=== PATIENT | female | born 1990 | race Caucasian/White ===

== ENCOUNTER → 2019-06-17 | Outpatient (CLI) | payer BC ==
--- NOTE | 2019-06-17 14:18 | 2DMMODE ---
[facility] [employer] [place] [address] 2 D/M-MODE ECHOCARDIOGRAM Name: CHACHA LAY Room #: REG CL [facility]#: [id number] Admission: 06/17/19 Attend Phys: David Tapia MD Discharge: Date of : 89 Report #: [id number] THIS REPORT FOR: //name// APPROVED REPORT Study performed: 06/17/2019 09:22:28 EXAM: Comprehensive 2D, Doppler, and color-flow Echocardiogram Patient Location: Out-Patient Status: routine BSA: 1.92 HR: 65 bpm BP: 100/70 mmHg Rhythm: NSR/arrythmia Indications Evaluate for PHTN, scleroderma, CREST sydrome. 2D Dimensions RVDd: 35.59 mm IVSd: 7.57 (7-11mm) LVOT Diam: 19.72 (18-24mm) LVDd: 43.56 mm PWd: 7.74 (7-11mm) Ascending Ao: 27.15 (22-36mm) LVDs: 31.86 (25-40mm) Aortic Root: 28.06 mm Volumes Left Atrial Volume (Systole) Single Plane 4CH: 48.50 mL Single Plane 2CH: 47.46 mL LA ESV Index: 28.00 mL/m2 Aortic Valve AoV Peak Héctor.: 1.35 m/s AO Peak Gr.: 7.30 mmHg LVOT Max P.22 mmHg LVOT Max V: 0.90 m/s ANABELLE Vmax: 2.03 cm2 Mitral Valve E/A Ratio: 2.1 MV Decel. Time: 230.97 ms MV E Max Héctor.: 0.81 m/s MV A Héctor.: 0.38 m/s MV PHT: 66.98 ms IVRT: 96.89 ms [facility] [employer] [place] [address] 2 D/M-MODE ECHOCARDIOGRAM Name: CHACHA LAY Room #: REG [facility]#: [id number] Admission: 06/17/19 Attend Phys: David Tapia MD Discharge: Date of : 89 Report #: [id number] Pulmonary Valve PV Peak Héctor.: 1.05 m/s PV Peak Gr.: 4.37 mmHg Pulmonary Vein P Vein S: 0.52 m/s P Vein A: 0.22 m/s P Vein D: 0.64 m/s P Vein A Dur.: 115.3 msec P Vein S/D Ratio: 0.81 Tricuspid Valve TR Peak Hécotr.: 2.10 m/s RAP Estimate: 5.00 mmHg TR Peak Gr.: 17.00 mmHg PA Pressure: 22.00 mmHg Left Ventricle The left ventricle is normal size. There is normal LV segmental wall motion. There is normal left ventricular wall thickness. Left ventricular systolic function is normal. LVEF is 55-60%. The left ventricular diastolic function is normal. Right Ventricle The right ventricle is normal size. The right ventricular systolic function is normal. Atria The left atrium size is normal. The right atrium size is normal. Aortic Valve The aortic valve is normal in structure. No aortic regurgitation is present. There is no aortic valvular stenosis. Mitral Valve The mitral valve is normal in structure. Trace mitral regurgitation. No evidence of mitral valve stenosis. Tricuspid Valve The tricuspid valve is normal in structure. Mild tricuspid regurgitation. Estimated PAP is 20-25mmHg. Pulmonic Valve The pulmonary valve is normal in structure. Trace pulmonic regurgitation. Great Vessels The aortic root is normal in size. The ascending aorta is normal in [facility] [address] [place] [address] 2 D/M-MODE ECHOCARDIOGRAM Name: CHACHA LAY Room #: REG [facility]#: [id number] Admission: 06/17/19 Attend Phys: David Tapia MD Discharge: Date of : 89 Report #: [id number] size. IVC is normal in size and collapses >50% with inspiration. Pericardium There is no pericardial effusion. <Conclusion> The left ventricle is normal size. LVEF is 55-60%. The aortic valve is normal in structure. The mitral valve is normal in structure. Trace mitral regurgitation. The tricuspid valve is normal in structure. Mild tricuspid regurgitation. Estimated PAP is 20-25mmHg. The pulmonary valve is normal in structure. Trace pulmonic regurgitation. There is no pericardial effusion. <ELECTRONICALLY SIGNED> By: Indio Douglas MD 06/17/19 1418 17 17 Indio Douglas MD /INF
--- NOTE | 2019-07-11 17:48 | PFR/MVV ---
[facility] [place] [address] PULMONARY FUNCTION MVV/REPORT Name: [facility]ACHA LAY [id number] Admission: 06/17/19 Attend Phys: Gaye Tapia MD Discharge: Date of : 89 Report #: [id number] THIS REPORT FOR: //name// >> SPIROMETRY: (BTPS) Height: 66 in cm Weight: 184 lbs kg Exam Date: 06/17/19 PRE-RX POST-RX PRED BEST %PRED BEST %PRED %CHG FVC LITERS . 4.09 . 3.62 . 88 . 3.59 . 88 . -1 FEV1 LITERS . 3.27 . 2.87 . 88 . 3.09 . 95 . 8 FEV1/FVC % . 79 . 79 . 100 . 86 . 109 . 8 KVW10-54% L/Sec . 3.70 . 2.93 . 79 . 3.92 . 106 . 34 PEF L/SEC . 6.80 . 5.10 . 75 . 5.33 . 78 . 4 FEF50/FIF50 UNITLESS . . 0.73 . 1.16 . . 60 . MVV L/Min . 117 . 83 . 71 f 1/Min . . 190 . >> LUNG VOLUMES: (BTPS) PRE-RX POST-RX PRED AVG %PRED AVG %PRED %CHG VC Liters . 4.09 . 3.62 . 88 . . . TLC Liters . 5.56 . 5.25 . 94 . . . RV Liters . 1.71 . 1.64 . 96 . . . RV/TLC % . 29 . 31 . 108 . . . FRC PL Liters . 2.75 . 2.25 . 82 . . . FRC N2 Liters . . . . . . ERV Liters . 1.34 . 0.62 . 46 . . . IC Liters . 2.69 . 2.63 . 96 . . . >> DIFFUSION: DLCO ml/Min/mmHg . 27.3 . 19.1 . 70 . . . DL Елена ml/Min/mmHg . 27.3 . 19.1 . 70 . . . DLCO/VA ml/Min/mmHg . 4.66 . 0.61 . 13 . . . VA Liters . . 31.26 . . . . COMMENTS: COMMENTS: >> RESISTANCE: [facility] [address] [place] [address] PULMONARY FUNCTION MVV/REPORT Name: CHACHA LAY Room #: REG [facility]#: [id number] Admission: 06/17/19 Attend Phys: Gaye Tapia MD Discharge: Date of : 89 Report #: [id number] PRE-RX PRED AVG %PRED Raw Total cmH20/L/Sec . . 4.14 . Raw Insp cmH20/L/Sec . . 1.35 . Raw Exp cmH20/L/Sec . . 1.90 . Raw cmH20/L/Sec . 1.39 . 2.27 . 163 Gaw L/Sec/cmH20 . 0.660 . 0.440 . 67 sRaw cmH20 Sec . 3.83 . 7.87 . 206 sGaw l/cmH20 Sec . 0.261 . 0.127 . 49 Vtq Liters . . 3.47 . # = OUTSIDE 95% CONFIDENCE INTERVAL CALIBRATION: PRED: 3.00 ACTUAL: EXP 3.01 INSP 3.02 [id number] >> INTERPRETATION/IMPRESSION: CC: [facility] physician/PCP GAYE BOX Gaye Box DATE OF SERVICE: 06/17/2019 Spirometric examination shows normal flows. There was no significant bronchodilator response. Small airways disease is suggested. Lung volumes are normal. Diffusion capacity is normal, but reduced when corrected for alveolar volume. Flow volume loop is normal. IMPRESSION: Normal pulmonary function test. <ELECTRONICALLY SIGNED> By: Cortez Serrano MD 07/11/19 1748 Cortez Serrano MD /nt
== END ==
LOC: CV 08:49
DX: I07.1 Rheumatic tricuspid insufficiency (principal); M34.1 CR(E)ST syndrome; R13.19 Other dysphagia; R06.02 Shortness of breath; Z79.899 Other long term (current) drug therapy